=== PATIENT | male | born 1995 | race Caucasian/White ===

== ENCOUNTER 2017-04-24 11:09 | Inpatient (IN) | payer OTHER ==
[2017-04-24 11:39] VITALS: BMI 37.9
--- NOTE | 2017-04-24 13:21 | HP ---
COWS - Scale Resting Pulse: 1= [place] 81-100 Sweatin=Flushed/Facial Moisture Restless Observation: 3= Extraneous Movement Pupil Size: 2= Moderately Dilated Bone or Joint Aches: 2= Severe Diffuse Aches Runny Nose/ Eye Tearin= Runny Nose/Eyes GI Upset > 30mins: 3= Vomiting/Diarrhea Tremor Observation: 2= Slight Tremor Visible Yawning Observation: 2= >3x During Session Anxiety or Irritability: 2=Irritable/Anxious Goose Flesh Skin: 0=Smooth Skin COWS Score: 21 CIWA Score - CIWA Score Nausea/Vomitin Muscle Tremors: 3 Anxiety: 3 Agitation: 3 Paroxysmal Sweats: 1-Minimal Palms Moist Orientation: 0-Oriented Tacttile Disturbances: 2-Mild Itch/Numbness/Burn Auditory Disturbances: 2-Mild Harshness/Frighten Visual Disturbances: 1-Very Mild Sensitivity Headache: 2-Mild CIWA-Ar Total Score: 20 Admission ROS BHS - HPI Chief Complaint: I NEED HELP TO STOP USING HEROIN,ALCOHOL Allergies/Adverse Reactions: Allergies Allergy/AdvReac Type Severity Reaction Status Date / Time Penicillins Allergy Severe Difficulty Verified 04/24/17 11:56 Breathing History of Present Illness: THIS 22 YEARS OLD MALE WITH HEROIN AND ALCOHOL DEPENDENCE,SEEKING DETOX,NEVER BEEN IN TREATMENT BEFORE NICOTINE DEPENDENCE - Ebola screening Have you traveled outside of the country in the last 21 days: No Have you had contact with anyone from an Ebola affected area: No Have you been sick,other than usual withdrawal symptoms: No Do you have a fever: No - Review of Systems Constitutional: Chills, Loss of Appetite, Malaise, Night Sweats, Changes in sleep, Weakness, Unintentional Wgt. Loss EENT: reports: Tearing, Nose Congestion Respiratory: reports: No Symptoms reported Cardiac: reports: No Symptoms Reported GI: reports: Diarrhea, Nausea, Vomiting, Abdominal cramping : reports: No Symptoms Reported Musculoskeletal: reports: Back Pain, Joint Pain, Muscle Pain, Joint Stiffness Integumentary: reports: Dryness Neuro: reports: Headache, Tremors Endocrine: reports: No Symptoms Reported Hematology: reports: No Symptoms Reported Psychiatric: reports: No Sypmtoms Reported, Judgement Intact, Mood/Affect Appropiate, Orientated x3 Patient History - Patient Medical History Hx Asthma: No Hx Chronic Obstructive Pulmonary Disease (COPD): No Hx Cardiac Disorders: No Hx Congestive Heart Failure: No Hx Hypertension: No Hx Hypercholesterolemia: No Hx Pacemaker: No HX Cerebrovascular Accident: No Hx Seizures: No Hx Dementia: No Hx Diabetes: No Hx Gastrointestinal Disorders: No Hx Liver Disease: No Hx Genitourinary Disorders: No Hx Sexually Transmitted Disorders: No Hx Renal Disease (ESRD): No Hx Thyroid Disease: No Hx Human Immunodeficiency Virus (HIV): No (LAST 02/19 NEGATIVE) Hx Hepatitis C: No Hx Depression: No Hx Suicide Attempt: No Hx Bipolar Disorder: No Hx Schizophrenia: No Other Medical History: NO SUICIDAL,NO SUICIIDAL - Patient Surgical History Past Surgical History: No - PPD History Previous Implant?: No Implanted On Prior [facility] Admission?: No PPD to be Administered?: Yes - Smoking Cessation Smoking history: Current every day smoker Have you smoked in the past 12 months: Yes Aproximately how many cigarettes per day: 10 Hx Chewing Tobacco Use: No Initiated information on smoking cessation: Yes 'Breaking Loose' booklet given: 04/24/17 - Substance & Tx. History Hx Alcohol Use: Yes Hx Substance Use: Yes Substance Use Type: Alcohol, Heroin Hx Substance Use Treatment: No - Substances Abused Alcohol Route: Oral Frequency: Daily Amount used: beer(2- cans-16 0oz) Age of first use: 21 Date of Last Use: 04/24/17 Heroin Route: Inhalation Frequency: Daily Amount used: 10 bags Age of first use: 21 Date of Last Use: 04/24/17 Cocaine Route: Inhalation Frequency: 3-6 times per week Amount used: 20$ Age of first use: 21 Date of Last Use: 04/24/17 Family Disease History - Family Disease History Family History: Denies Admission Physical Exam S - Vital Signs Vital Signs: Vital Signs - 24 hr 04/24/17 11:35 Temperature 98.1 F Pulse Rate 99 H Respiratory 20 Rate Blood Pressure 140/83 - Physical General Appearance: Yes: Moderate Distress, Tremorous, Irritable, Sweating, Anxious HEENTM: Yes: NEISHA, Pharynx Normal, Photophobia Respiratory: Yes: Lungs Clear, Normal Breath Sounds, No Respiratory Distress Neck: Yes: Within Normal Limits, Supple, Trachea in good position Breast: Yes: Within Normal Limits Cardiology: Yes: Within Normal Limits, Regular Rhythm, Regular Rate, S1, S2 Abdominal: Yes: Within Normal Limits, Normal Bowel Sounds, Non Tender, Flat, Soft Genitourinary: Yes: Within Normal Limits Back: Yes: Normal Inspection, Muscle Spasm Musculoskeletal: Yes: Back pain, Joint Stiffness, Muscle Pain Extremities: Yes: Tremors Neurological: Yes: quality control lead II-XII NML intact, Fully Oriented, Alert, Motor Strength 5/5 Integumentary: Yes: Dry Lymphatic: Yes: Within Normal Limits - Diagnostic (1) Opioid dependence with withdrawal Status: Acute (2) Cocaine dependence Status: Acute Qualifiers: Substance use status: uncomplicated Qualified Code(s): F14.20 - Cocaine dependence, uncomplicated; F14.20 - Cocaine dependence, uncomplicated; F14.20 - Cocaine dependence, uncomplicated (3) Cannabis dependence Status: Acute (4) Weight loss Status: Acute (5) Nicotine dependence Status: Chronic Qualifiers: Nicotine product type: cigarettes Substance use status: uncomplicated Qualified Code(s): F17.210 - Nicotine dependence, cigarettes, uncomplicated; F17.210 - Nicotine dependence, cigarettes, uncomplicated Cleared for Admission [facility] - Detox or Rehab [facility] Level of Care: Medically Managed Detox Regimen/Protocol: Methadone/Librium [facility] Breath Alcohol Content Breath Alcohol Content: 0 Urine Drug Screen - Results Drug Screen Negative: No Urine Drug Screen Results: PIOTR-Cocaine, OPI-Opiates, BZO-Benzodiazepines
[2017-04-24] MEDS ORDERED: guaiFENesin/D-METHORPHAN HB 10 ML UNIT-DOSE CUPS PO PRN (13:35)
[2017-04-24] MEDS ORDERED: MAGNESIUM CITRATE 300 ML BOTTLE PO PRN (13:35)
[2017-04-24] MEDS ORDERED: hydrOXYzine PAMOATE 25 MG CAPSULE (FP) PO PRN (13:35)
[2017-04-24] MEDS ORDERED: MAG HYDROX/AL HYDROX/SIMETH 30 ML UNIT-DOSE CUP PO PRN (13:35)
[2017-04-24] MEDS ORDERED: LOPERAMIDE HCL 2 MG CAPSULE PO PRN (13:35)
[2017-04-24] MEDS ORDERED: MAGNESIUM HYDROX 2400MG/30ML ORAL SUSPENSION 30 ML CUP PO PRN (13:35)
[2017-04-24] MEDS ORDERED: MENTHOL/PHENOL 1 EACH UD MM PRN (13:35)
[2017-04-24] MEDS ORDERED: P-EPHED 60MG/TRIPROLIDI 2.5MG TABLET PO PRN (13:35)
[2017-04-24] MEDS ORDERED: IBUPROFEN 400 MG TABLET (FP) PO PRN (13:35)
[2017-04-24] MEDS ORDERED: ACETAMINOPHEN 325 MG TABLET (FP) PO PRN (13:35)
[2017-04-24] MEDS ORDERED: chlordiazePOXIDE HCL 25 MG CAPSULE PO ONE (14:30)
[2017-04-24] MEDS ORDERED: METHADONE HCL 10 MG TABLET (FOR DETOX USE ONLY) PO ONE ×2 (14:45→23:00)
[2017-04-24] MEDS: chlordiazePOXIDE HCL 25 MG CAPSULE PO SCH ×2 (17:46→22:30)
[2017-04-24 19:05] LABS: URINE APPEARANCE SLCLOUDY; URINE BILIRUBIN NEGATIVE (NEGATIVE); URINE BLOOD NEGATIVE (NEGATIVE); URINE COLOR YELLOW; URINE GLUCOSE (UA) NEGATIVE (NEGATIVE); URINE KETONE NEGATIVE (NEGATIVE); URINE NITRITE NEGATIVE (NEGATIVE); URINE PROTEIN NEGATIVE (NEGATIVE); URINE UROBILINOGEN 4.0 E.U/dl mg/dL (0.2-1.0)
[2017-04-24 20:31] LABS: URINE LEUK ESTERASE Negative (NEGATIVE)
[2017-04-24] MEDS: THIAMINE HCL 100 MG TABLET (FP) PO SCH (22:30)
[2017-04-25] MEDS: chlordiazePOXIDE HCL 25 MG CAPSULE PO SCH ×4 (05:38→22:42)
[2017-04-25 09:10] LABS: MCH 28.9 pg (25.7-33.7); MCHC 33.3 g/dl (32.0-35.9); MEAN CELL VOLUME 86.6 fl (80-96); MEAN PLT VOLUME 10.3 fl (7.5-11.1); PLATELET COUNT 348 K/MM3 (134-434); WHITE BLOOD COUNT 13.6 K/mm3 (4.0-10.0)
[2017-04-25] MEDS ORDERED: METHADONE HCL 10 MG TABLET (FOR DETOX USE ONLY) PO SCH (10:00)
[2017-04-25] MEDS: PRENATAL VITAMINS W/ FOLIC ACID TABLET (FP) PO SCH (10:53)
[2017-04-25 11:17] LABS: ALK PHOS 110 U/L (45-117); ANION GAP 8 (8-16); BILIRUBIN,TOTAL 0.6 mg/dL (0.2-1.0); CALCIUM 9.2 mg/dL (8.5-10.1); CO2 28 mmol/L (21-32); CREATININE 0.9 mg/dL (0.7-1.3); GLUCOSE,RANDOM 95 mg/dL (74-106); SGOT/AST 22 U/L (15-37); SGPT/ALT 40 U/L (12-78); TOT PROT 7.9 g/dl (6.4-8.2)
--- NOTE | 2017-04-25 11:58 | PN ---
[facility] CIWA - CIWA Score Nausea/Vomitin-No Nausea/No Vomiting Muscle Tremors: 3 Anxiety: 4-Mod. Anxious/Guarded Agitation: 4-Moderately Restless Paroxysmal Sweats: 3 Orientation: 0-Oriented Tacttile Disturbances: 0-None Auditory Disturbances: 0-None Visual Disturbances: 0-None Headache: 0-None Present CIWA-Ar Total Score: 14 S COWS - Scale Resting Pulse: 1= [place] 81-100 Sweatin=Flushed/Facial Moisture Restless Observation: 1= Difficult to Sit Still Pupil Size: 0= Normal to Room Light Bone or Joint Aches: 1= Mild Discomfort Runny Nose/ Eye Tearin= Runny Nose/Eyes GI Upset > 30mins: 2= Nausea/Diarrhea Tremor Observation of Outstretched Hands: 2= Slight Tremor Visible Yawning Observation: 1= 1-2x During Session Anxiety or Irritability: 2=Irritable/Anxious Goose Flesh Skin: 0=Smooth Skin COWS Score: 14 S Progress Note (SOAP) Subjective: Anxiety,tremors,sweating,interrupted sleep,restless Objective: 04/25/17 11:56 Vital Signs - 8 hr 04/25/17 04/25/17 04:07 09:56 Temperature 97.9 F Pulse Rate 87 Respiratory 16 18 Rate Blood Pressure 132/74 Laboratory Last Values WBC 13.6 K/mm3 (4.0-10.0) H 04/25/17 06:00 RBC 4.89 M/mm3 (4.00-5.60) 04/25/17 06:00 Hgb 14.1 GM/dL (11.7-16.9) 04/25/17 06:00 Hct 42.3 % (35.4-49) 04/25/17 06:00 MCV 86.6 fl (80-96) 04/25/17 06:00 MCH 28.9 pg (25.7-33.7) 04/25/17 06:00 MCHC 33.3 g/dl (32.0-35.9) 04/25/17 06:00 RDW 13.0 % (11.9-15.9) 04/25/17 06:00 Plt Count 348 K/MM3 (134-434) 04/25/17 06:00 MPV 10.3 fl (7.5-11.1) 04/25/17 06:00 Sodium 139 mmol/L (136-145) 04/25/17 06:00 Potassium 4.4 mmol/L (3.5-5.1) 04/25/17 06:00 Chloride 103 mmol/L (98-107) 04/25/17 06:00 Carbon Dioxide 28 mmol/L (21-32) 04/25/17 06:00 Anion Gap 8 (8-16) 04/25/17 06:00 BUN 14 mg/dL (7-18) 04/25/17 06:00 Creatinine 0.9 mg/dL (0.7-1.3) 04/25/17 06:00 Creat Clearance w eGFR > 60 (>60) 04/25/17 06:00 Random Glucose 95 mg/dL (74-106) 04/25/17 06:00 Calcium 9.2 mg/dL (8.5-10.1) 04/25/17 06:00 Total Bilirubin 0.6 mg/dL (0.2-1.0) 04/25/17 06:00 AST 22 U/L (15-37) 04/25/17 06:00 ALT 40 U/L (12-78) 04/25/17 06:00 Alkaline Phosphatase 110 U/L (45-117) 04/25/17 06:00 Total Protein 7.9 g/dl (6.4-8.2) 04/25/17 06:00 Albumin 4.0 g/dl (3.4-5.0) 04/25/17 06:00 Urine Color Yellow 04/24/17 18:00 Urine Appearance Slcloudy 04/24/17 18:00 Urine pH 6.0 (5.0-8.0) 04/24/17 18:00 Ur Specific [place] 1.020 (1.005-1.025) 04/24/17 18:00 Urine Protein Negative (NEGATIVE) 04/24/17 18:00 Urine Glucose (UA) Negative (NEGATIVE) 04/24/17 18:00 Urine Ketones Negative (NEGATIVE) 04/24/17 18:00 Urine Blood Negative (NEGATIVE) 04/24/17 18:00 Urine Nitrite Negative (NEGATIVE) 04/24/17 18:00 Urine Bilirubin Negative (NEGATIVE) 04/24/17 18:00 Urine Urobilinogen 4.0 e.u/dl mg/dL (0.2-1.0) 04/24/17 18:00 Ur Leukocyte Esterase Negative (NEGATIVE) 04/24/17 18:00 RPR Titer Nonreactive (NONREACTIVE) 04/25/17 06:00 labs noted Assessment: 04/25/17 11:57 Withdrawal sx. Plan: Continue detox
[2017-04-25] MEDS: chlordiazePOXIDE HCL 25 MG CAPSULE PO PRN (12:06)
--- NOTE | 2017-04-25 13:22 | EKG ---
Test Reason : Blood Pressure : / mmHG Vent. Rate : 093 BPM Atrial Rate : 093 BPM P-R Int : 136 ms QRS Dur : 082 ms QT Int : 342 ms P-R-T Axes : 052 065 029 degrees QTc Int : 425 ms NORMAL SINUS RHYTHM NORMAL ECG NO PREVIOUS ECGS AVAILABLE Confirmed by DASIA WILLAMS, MAXIMUS ([id number]) on 04/25/2017 1:22:02 PM Referred By: Confirmed By:MAXIMUS FORMAN MD
[2017-04-25] MEDS: diphenhydrAMINE HCL 50 MG CAPSULE PO PRN (22:42)
[2017-04-25] MEDS: THIAMINE HCL 100 MG TABLET (FP) PO SCH (22:42)
[2017-04-26] MEDS: chlordiazePOXIDE HCL 25 MG CAPSULE PO SCH ×2 (05:41→10:51)
[2017-04-26] MEDS ORDERED: METHADONE HCL 5 MG TABLET (FOR DETOX USE ONLY) PO SCH (10:00)
[2017-04-26] MEDS: PRENATAL VITAMINS W/ FOLIC ACID TABLET (FP) PO SCH (10:51)
[2017-04-26] MEDS ORDERED: hydrOXYzine PAMOATE 50 MG CAPSULE (FP) PO ONE (14:45)
[2017-04-26] MEDS: chlordiazePOXIDE 5 MG CAPSULE PO SCH ×2 (17:16→22:27)
--- NOTE | 2017-04-26 17:30 | PN ---
S CIWA - CIWA Score Nausea/Vomitin Muscle Tremors: 4-Moderate,w/Arms Extend Anxiety: 5 Agitation: 5 Paroxysmal Sweats: 3 Orientation: 0-Oriented Tacttile Disturbances: 1-Very Mild Itch/Numbness Auditory Disturbances: 0-None Visual Disturbances: 0-None Headache: 1-Very Mild CIWA-Ar Total Score: 22 BHS COWS - Scale Resting Pulse: 1= [place] 81-100 Sweatin= Chills/Flushing Restless Observation: 3= Extraneous Movement Pupil Size: 0= Normal to Room Light Bone or Joint Aches: 2= Severe Diffuse Aches Runny Nose/ Eye Tearin= Runny Nose/Eyes GI Upset > 30mins: 2= Nausea/Diarrhea Tremor Observation of Outstretched Hands: 2= Slight Tremor Visible Yawning Observation: 0= None Anxiety or Irritability: 2=Irritable/Anxious Goose Flesh Skin: 0=Smooth Skin COWS Score: 15 BHS Progress Note (SOAP) Subjective: Anxious, restless, tremor, chills, interrupted sleep. Patient requesting to be discharged today. Doctor Of Nurse Anesthesia was able to convince patient to stay. He agreed to take vistaril 50mg PO x 1 dose. Patient is now requesting to be discharged on Thursday. Objective: 04/26/17 17:28 Last Vital Signs Temp Pulse Resp BP Pulse Ox 97.2 F L 84 18 115/78 04/26/17 13:21 04/26/17 13:21 04/26/17 13:21 04/26/17 13:21 Laboratory Tests 04/24/17 04/25/17 04/25/17 18:00 06:00 06:00 WBC 13.6 H RBC 4.89 Hgb 14.1 Hct 42.3 MCV 86.6 MCH 28.9 MCHC 33.3 RDW 13.0 Plt Count 348 MPV 10.3 Sodium 139 Potassium 4.4 Chloride 103 Carbon Dioxide 28 Anion Gap 8 BUN 14 Creatinine 0.9 Creat Clearance w eGFR > 60 Random Glucose 95 Calcium 9.2 Total Bilirubin 0.6 AST 22 ALT 40 Alkaline Phosphatase 110 Total Protein 7.9 Albumin 4.0 Urine Color Yellow Urine Appearance Slcloudy Urine pH 6.0 Ur Specific [place] 1.020 Urine Protein Negative Urine Glucose (UA) Negative Urine Ketones Negative Urine Blood Negative Urine Nitrite Negative Urine Bilirubin Negative Urine Urobilinogen 4.0 e.u/dl Ur Leukocyte Esterase Negative RPR Titer 04/25/17 06:00 WBC RBC Hgb Hct MCV MCH MCHC RDW Plt Count MPV Sodium Potassium Chloride Carbon Dioxide Anion Gap BUN Creatinine Creat Clearance w eGFR Random Glucose Calcium Total Bilirubin AST ALT Alkaline Phosphatase Total Protein Albumin Urine Color Urine Appearance Urine pH Ur Specific [place] Urine Protein Urine Glucose (UA) Urine Ketones Urine Blood Urine Nitrite Urine Bilirubin Urine Urobilinogen Ur Leukocyte Esterase RPR Titer Nonreactive Labs noted: wbc 13.6 Assessment: 04/26/17 17:28 Withdrawal symptoms Noted with leukocytosis Plan: Continue detox Vistaril 50mg PO x 1 dose given for anxiety Leukocytosis: probably stress related, asymptomatic for infection, repeat CBC in AM
[2017-04-26] MEDS ORDERED: ZOLPIDEM TARTRATE 5 MG TABLET PO PRN (21:00)
[2017-04-26] MEDS: THIAMINE HCL 100 MG TABLET (FP) PO SCH (22:27)
[2017-04-27] MEDS: chlordiazePOXIDE HCL 25 MG CAPSULE PO PRN (01:04)
[2017-04-27] MEDS: diphenhydrAMINE HCL 50 MG CAPSULE PO PRN (01:04)
[2017-04-27] MEDS: chlordiazePOXIDE 5 MG CAPSULE PO SCH (05:50)
[2017-04-27 09:14] VITALS: BP 124/69; PULSE 94; TEMP 97.7
[2017-04-27 09:54] LABS: BASOPHIL 0.8 % (0-2.0); EOSINOPHIL 3.5 % (0-4.5); MCH 27.9 pg (25.7-33.7); MCHC 33.3 g/dl (32.0-35.9); MEAN CELL VOLUME 83.9 fl (80-96); MEAN PLT VOLUME 9.6 fl (7.5-11.1); NEUTROPHILS 59.3 % (42.8-82.8); PLATELET COUNT 335 K/MM3 (134-434); RDW 13.1 % (11.9-15.9); WHITE BLOOD COUNT 14.1 K/mm3 (4.0-10.0)
--- NOTE | 2017-04-27 10:48 | DS ---
[facility] Detox Discharge Summary Admission Date: 04/24/17 Discharge Date: 04/27/17 - History Present History: Cannabis Dependence, Cocaine Dependence, Opioid Dependence Additional Comments: PATIENT DOES NOT WISH TO STAY TO COMPLETE DETOX REGIMEN. RISKS OF LEAVING DETOX UNIT PRIOR TO COMPLETION OF DETOX REGIMEN EXPLAINED TO PATIENT. PATIENT ADVISED TO GO IMMEDIATELY TO NEAREST ER SHOULD ANY INTOLERABLE DETOX SYMPTOMS DEVELOP AT ANY TIME. PATIENT LEFT DETOX UNIT IN STABLE MEDICAL CONDITION. Pertinent Past History: Nicotine dependence. - Physical Exam Results Vital Signs: Vital Signs Temperature 97.7 F 04/27/17 09:14 Pulse Rate 94 H 04/27/17 09:14 Respiratory Rate 18 04/27/17 09:14 Blood Pressure 124/69 04/27/17 09:14 O2 Sat by Pulse Oximetry (%) Pertinent Admission Physical Exam Findings: WITHDRAWAL SYMPTOMS. Laboratory Tests 04/24/17 04/25/17 04/25/17 18:00 06:00 06:00 WBC 13.6 H RBC 4.89 Hgb 14.1 Hct 42.3 MCV 86.6 MCH 28.9 MCHC 33.3 RDW 13.0 Plt Count 348 MPV 10.3 Neutrophils % Lymphocytes % Monocytes % Eosinophils % Basophils % Sodium 139 Potassium 4.4 Chloride 103 Carbon Dioxide 28 Anion Gap 8 BUN 14 Creatinine 0.9 Creat Clearance w eGFR > 60 Random Glucose 95 Calcium 9.2 Total Bilirubin 0.6 AST 22 ALT 40 Alkaline Phosphatase 110 Total Protein 7.9 Albumin 4.0 Urine Color Yellow Urine Appearance Slcloudy Urine pH 6.0 Ur Specific [place] 1.020 Urine Protein Negative Urine Glucose (UA) Negative Urine Ketones Negative Urine Blood Negative Urine Nitrite Negative Urine Bilirubin Negative Urine Urobilinogen 4.0 e.u/dl Ur Leukocyte Esterase Negative RPR Titer 04/25/17 04/27/17 06:00 07:00 WBC 14.1 H RBC 4.67 Hgb 13.0 Hct 39.1 MCV 83.9 MCH 27.9 MCHC 33.3 RDW 13.1 Plt Count 335 MPV 9.6 Neutrophils % 59.3 Lymphocytes % 30.9 Monocytes % 5.5 Eosinophils % 3.5 Basophils % 0.8 Sodium Potassium Chloride Carbon Dioxide Anion Gap BUN Creatinine Creat Clearance w eGFR Random Glucose Calcium Total Bilirubin AST ALT Alkaline Phosphatase Total Protein Albumin Urine Color Urine Appearance Urine pH Ur Specific [place] Urine Protein Urine Glucose (UA) Urine Ketones Urine Blood Urine Nitrite Urine Bilirubin Urine Urobilinogen Ur Leukocyte Esterase RPR Titer Nonreactive LABS NOTED. - Treatment Hospital Course: Detoxed Safely - Medication Discharge Medications: Ambulatory Orders NK [No Known Home Medication] 04/24/17 - Diagnosis (1) Cannabis dependence Current Visit: Yes Status: Acute (2) Cocaine dependence Current Visit: Yes Status: Acute Qualifiers: Substance use status: uncomplicated Qualified Code(s): F14.20 - Cocaine dependence, uncomplicated; F14.20 - Cocaine dependence, uncomplicated; F14.20 - Cocaine dependence, uncomplicated (3) Nicotine dependence Current Visit: Yes Status: Chronic Qualifiers: Nicotine product type: cigarettes Substance use status: uncomplicated Qualified Code(s): F17.210 - Nicotine dependence, cigarettes, uncomplicated; F17.210 - Nicotine dependence, cigarettes, uncomplicated (4) Opioid dependence with withdrawal Current Visit: Yes Status: Acute (5) Weight loss Current Visit: Yes Status: Acute - AMA Did Patient Leave Against Medical Advice: Yes (PATIENT DID NOT WISH TO STAY TO COMPLETE DETOX REGIMEN.)
[2017-04-27] MEDS ORDERED: chlordiazePOXIDE HCL 10 MG CAPSULE PO SCH (17:00)
[2017-04-28] MEDS ORDERED: METHADONE HCL 10 MG TABLET (FOR DETOX USE ONLY) PO SCH (10:00)
[2017-04-29] MEDS ORDERED: METHADONE HCL 5 MG TABLET (FOR DETOX USE ONLY) PO SCH (06:00)
== END 2017-04-27 10:55 | disposition left against medical advice (07) | DRG 894 ==
LOC: YASAS 11:09 → Y3N 14:08
PROVIDERS: ADMIT Internal Medicine; ATTEND Internal Medicine
PROC: HZ2ZZZZ Detoxification Services for Substance Abuse Treatment (ICD-10-PCS; principal; 2017-04-24)
DX: F11.23 Opioid dependence with withdrawal (principal); F14.20 Cocaine dependence, uncomplicated; F12.20 Cannabis dependence, uncomplicated; F17.210 Nicotine dependence, cigarettes, uncomplicated; Z87.898 Personal history of other specified conditions
CPT/HCPCS: 36415; 80053; 81003; 85025; 85027; 86593; 93005; 93010